=== PATIENT | female | born 1955 | race Two or more races ===

== ENCOUNTER 2017-12-22 17:38 | Emergency (ER) | payer SELFPAY ==
[2017-12-22] MEDS: ACETAMINOPHEN 500 MG TABLET PO ×2 (18:45)
[2017-12-22] MEDS: ONDANSETRON ODT 4 MG TAB.RAPDIS. PO ×2 (18:45)
== END 2017-12-22 18:54 | disposition home or self-care (01) ==
LOC: ER 17:38
DX: J11.1 Influenza due to unidentified influenza virus with other respiratory manifestations (principal); B34.9 Viral infection, unspecified; E11.9 Type 2 diabetes mellitus without complications; E78.00 Pure hypercholesterolemia, unspecified; Z90.49 Acquired absence of other specified parts of digestive tract
CPT/HCPCS: 99283; Q0162